=== PATIENT | male | born 1990 | race Asian ===

== ENCOUNTER 2019-12-25 04:16 | Emergency (ER) | payer OTHER ==
[~2019-12-25] VITALS: Ht 185.4 cm; Wt 124.3 kg
[2019-12-25 04:28] VITALS: BP 134/91
--- NOTE | 2019-12-25 04:41 | NUR ---
PT TAKEN TO BED 12
--- NOTE | 2019-12-25 04:58 | NUR ---
29 Y/O M PRESENTS TO THE ED C/O LEFT SIDE OF CHEST "FEELS WEIRD, LIKE I CAN FEEL MY HEART BEAT BUT IT IS NOT FAST" X 1 DAY. PT STATES HAVING THIS WEIRD FEELING ON THE LEFT SIDE OF HIS CHEST FOR 2 WEEKS INTERMITTENTLY, BUT STARTED FEELING HIS HEART BEAT TODAY. PT ALSO STATES THAT HE NOTICED HIS "FEET BEING PALE AND FINGERTIPS BEING COLD" SINCE 0100 TODAY. PT ALSO STATES FEELING "TINGLINESS ON BOTH LEGS" SINCE 0100 TODAY. PT ALSO STATES FEELING FATIGUE X 1 MONTH. BED IN LOWEST POSITION, SIDE RAIL UP X1. PMH: HYPOTHYROID, ACUTE ASTHMA ALLERGIES: NKA
[2019-12-25 05:36] LABS: BASOPHILS # (AUTO) 0.1 K/uL (0.00-0.22); BASOPHILS % (AUTO) 0.9 % (0.0-2.0); EOSINOPHILS # (AUTO) 0.4 K/uL (0-0.4); EOSINOPHILS % (AUTO) 4.3 % (0.0-4.0); HEMATOCRIT 45.4 % (36-52); HEMOGLOBIN 15.8 g/dL (12.0-18.0); LYMPHOCYTES # (AUTO) 1.7 K/uL (2.0-11.5); LYMPHOCYTES % (AUTO) 16.4 % (20.5-51.1); MEAN CORPUSCULAR HEMOGLOBIN 32 pg (27-31); MEAN CORPUSCULAR HGB CONC 35 g/dL (33-37); MEAN CORPUSCULAR VOLUME 92.2 fL (80-94); MONOCYTES # (AUTO) 0.9 K/uL (0.8-1.0); MONOCYTES % (AUTO) 8.5 % (1.7-9.3); NEUTROPHILS # (AUTO) 7.4 K/uL (1.8-7.7); NEUTROPHILS % (AUTO) 69.9 % (42.2-75.2); PLATELET COUNT (AUTO) 273 K/uL (140-450); RED BLOOD CELL COUNT(AUTO) 4.93 MIL/uL (4.20-6.10); RED CELL DISTRIBUTION WIDTH 12.8 % (11.6-13.7); WHITE BLOOD COUNT (AUTO) 10.5 K/uL (4.8-10.8)
[2019-12-25 05:54] LABS: ALBUMIN 4.7 g/dL (3.4-5.0); ANION GAP 7.6 (8-16); CARBON DIOXIDE 35.5 mmol/L (21-32); CREATININE 1.2 mg/dL (0.6-1.3); POTASSIUM 3.1 mmol/L (3.5-5.1); TOTAL BILIRUBIN 0.8 mg/dL (0.0-1.0)
[2019-12-25 06:03] LABS: CREATINE KINASE MB 1.1 ng/mL (0-3.6)
--- NOTE | 2019-12-25 06:09 | NUR ---
RAD AT BEDSIDE.
--- NOTE | 2019-12-25 06:27 | NUR ---
ASSISTED PT TO RESTROOM, STEADY GAIT.
[2019-12-25 06:44] LABS: FREE T4 (FREE THYROXINE) 1.29 ng/dL (0.76-1.46); THYROID STIMULATING HORMONE 3.49 uIU/mL (0.34-3.74)
--- NOTE | 2019-12-25 06:45 | NUR ---
PT RESTING IN BED, SYMMETERICAL CHEST RISE. NO RESPIRATORY DISTRESS NOTED. BED IN LOWEST POSITION, SIDE RAIL UP X1.
[2019-12-25 07:08] VITALS: BP 124/68
--- NOTE | 2019-12-25 07:11 | NUR ---
Patient discharged with v/s stable. Written and verbal after care instructions given and explained. Patient alert, oriented and verbalized understanding of instructions. Ambulatory with steady gait. All questions addressed prior to discharge. ID band removed. Patient advised to follow up with PMD. Rx of sudafed given. Patient educated on indication of medication including possible reaction and side effects. Opportunity to ask questions provided and answered.
== END 2019-12-25 07:11 | disposition home or self-care (01) ==
LOC: MED 04:16
DX: R07.89 Other chest pain (principal); J45.909 Unspecified asthma, uncomplicated; E07.9 Disorder of thyroid, unspecified
CPT/HCPCS: 36415; 71045; 80053; 82550; 82553; 83690; 83880; 84439; 84443; 84484; 85025; 87804; 93005; 99285; Q0092